=== PATIENT | male | born 1980 ===

== ENCOUNTER → 2019-09-20 19:04 | Outpatient (CLI) | payer OTHER, SELFPAY ==
[2019-09-20 21:59] LABS: COVID19 -Nasal RAPID Negative (Negative)
== END ==
PROVIDERS: Referring Provider Family Medicine; Visit Provider Family Medicine
DX: Z11.59 Encounter for screening for other viral diseases (principal)
CPT/HCPCS: 87635

== ENCOUNTER → 2021-02-02 08:23 | Outpatient (CLI) | payer OTHER, SELFPAY ==
[2021-02-02 11:01] LABS: COVID19 -Nasal RAPID Negative (Negative)
== END ==
PROVIDERS: Visit Provider Physician Assistant
DX: Z20.822 Contact with and (suspected) exposure to COVID-19 (principal)
CPT/HCPCS: 87635

== ENCOUNTER 2021-02-09 11:03 | Emergency (ER) | payer OTHER, SELFPAY ==
[2021-02-09] VITALS (10 sets, daily range): BP systolic 119–141; BP diastolic 60–89; PULSE 46–54; RESP 12–21; TEMP 36.9; O2SAT 94–100; BMI 24.4
[2021-02-09] MEDS: SODIUM CHLORIDE 0.9% 1,000 ML 1000 ML IV (11:20)
--- NOTE | 2021-02-09 11:38 | DI.CT.S_ITS ---
PROCEDURE: CT HEAD/BRAIN WO CON INDICATIONS: AMS TECHNIQUE: Noncontrast 4.5 mm thick angled axial sections acquired from the foramen magnum to the vertex, with coronal and sagittal reformats. For radiation dose reduction, the following was used: automated exposure control, adjustment of mA and/or kV according to patient size. COMPARISON: None. FINDINGS: Image quality: Excellent. CSF spaces: The left basal cistern is narrowed, with developing hydrocephalus on the left. Brain: Extensive low density with swelling can be seen throughout the3 right cerebral hemisphere. There is the appearance of a low-density mass centered within the right temporal lobe that measures 3.8 x 4.1 cm in greatest axial dimension, with extensive surrounding edema. There is midline shift of 1 cm. There is potential, minimal early subfalcine herniation. Apparent low-density can be seen within the brainstem as well. Oliveira-white matter interface is normal. Skull and face: Calvarium and visualized facial bones are intact, without suspicious lesions. Sinuses: Visualized sinuses and mastoids are clear. IMPRESSION: Right-sided mass centered within the right temporal lobe, with extensive surrounding edema and mass effect. There is midline shift, with potential, minimal early subfalcine herniation. The left basal cistern is narrowed, with developing hydrocephalus on the left. If it would be helpful for clinical management decision making, please consider a dedicated brain MRI for further evaluation (assuming that there is no contraindication). Neurosurgery consultation is recommended. Note: Findings and recommendations discussed by telephone with Dr. Hines at 11:00 a.m. [place] time on February 09, 2021. Dictated by: Norman Foreman M.D. on 02/09/2021 at 10:57 Approved by: Norman Foreman M.D. on 02/09/2021 at 11:03
--- NOTE | 2021-02-09 11:38 | ED.NEUROSD ---
HPI - Neuro Symptoms/Deficit General Chief Complaint: Neuro Symptoms/Deficit Stated Complaint: Sinus issues, migraine, nauseas, fatigue, unrespon Time Seen by Provider: 02/09/21 11:15 Source: patient Mode of arrival: Wheelchair Limitations: no limitations History of Present Illness HPI Narrative: Patient is a 41-year-old male. This somewhat difficult to obtain in HPI from the patient. Much of the history comes from the patient's who is at bedside. For the past week he has had a progressive decline in mental status which has worsened over the past 24 hours. He was seen approximately 1 week ago for headache and sinus issues. Was swabbed for COVID which was negative. Since that visit according to his he has been progressively worsening. states he has not been acting like himself. Today his stated that she was taking him to the hospital despite his objections to this. She did bring him by private vehicle but threatening to call 911 if he could not walk to the car. Patient is able to provide some HPI but he seems to be inappropriate with answering questions. He tries to provide joking answers to my questions. Other than having pain ?in my nose. He reports no other symptoms although I do have some concern that he may not be able to answer what I am asking him or able to understand what I am asking. On Anticoagulants: No Related Data Allergies Allergy/AdvReac Type Severity Reaction Status Date / Time No Known Drug Allergies Allergy Verified 02/09/21 11:09 Review of Systems Review of Systems Narrative: Patient's only positive review of system was pain in his nose although I have concern that he does not have the ability to either understand when I am asking or answer the questions. ROS Unobtainable: Unobtainable due to medical condition Hematologic/Lymphatic On Anticoagulants: No Patient History Medical History URI (upper respiratory infection) Social History (Updated 02/09/21 @ 12:15 by Jesus Hines DO) marital status: lives independently: Yes alcohol intake frequency: holidays/special occasions only Substance Use Type: marijuana Exam Initial Vital Signs Initial Vital Signs: Vital Signs Temperature 98.4 F 02/09/21 11:07 Pulse Rate 54 L 02/09/21 11:07 Respiratory Rate 14 02/09/21 11:07 Blood Pressure 136/73 02/09/21 11:07 Pulse Oximetry 97 02/09/21 11:07 Const General: well developed and well groomed [facility] Head: normal to inspection and normocephalic Nose: external nose normal Face and sinus: normal facial exam Mouth: moist mucous membranes Eyes Other: Right eye is somewhat proptotic. Pupils his 8 mm and dilated and does not respond to light. Left pupil is 3 mm and reactive. Patient unable to follow commands to evaluate his extraocular muscles. Neck Neck: normal visual inspection Chest Chest: normal inspection of the chest Resp Effort & Inspection: normal respiratory effort Auscultation: clear to auscultation bilaterally Cardio Rate: regular rate Rhythm: regular rhythm GI Inspection: normal to inspection Skin General: no rashes or lesions noted Neuro Other: Patient is alert to person and place. He is somewhat inappropriate with answering questions. He jokes around with his answers. His right eye is somewhat proptotic and the right pupil is fixed and dilated compared to the left. The rest of his cranial nerves appears to be intact. He has no other facial palsies. His right upper extremity has 5/5 strength and he can follow commands. Patient is unable to lift his left upper extremity. 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 Patient's right lower extremity is 5/5 strength in his able to follow commands. He seems to have equal strength to his left lower extremity and follows commands with this as well. Extrem General: normal to inspection and capillary refill normal Psych Appearance: grossly normal and well kempt Scores GCS Dexter coma scale eye opening: Spontaneous Matthews coma scale verbal response: Orientated Dexter coma scale motor response: Obey commands Matthews coma scale total score: 15 Course Orders Ordered: ED Orders 02/09/21 11:30 Urinalysis and Microscopic Stat 02/09/21 11:31 Urine Drug Screen, Rapid Stat 02/09/21 11:35 Basic Metabolic Panel Stat COVID19 -Nasal swab/Pre-Proc Stat Complete Blood Count AUTO DIFF Stat Ethanol (ETOH) Stat Thyroid Stimulating Hormone Stat 02/09/21 11:38 CT head/brain wo con Stat Discontinued Medications Dexamethasone (Dexamethasone 10 Mg/Ml Vial) 10 mg IV NOW ONE Stop: 02/09/21 12:09 Last Admin: 02/09/21 12:13 Dose: 10 mg Documented by: ATAYLOR Sodium Chloride (Normal Saline 0.9%) 1,000 mls @ 1,000 mls/hr IV BOLUS ONE Stop: 02/09/21 12:14 Last Admin: 02/09/21 11:20 Dose: 1,000 mls/hr Documented by: TISHA Vital Signs Vital signs: Vital Signs - 8 hr 02/09/21 11:07 02/09/21 11:49 02/09/21 11:51 Temperature 98.4 F Pulse Rate 54 L 50 L 50 L Respiratory Rate 14 16 17 Blood Pressure 136/73 132/79 Pulse Oximetry 97 98 97 02/09/21 12:00 02/09/21 12:15 02/09/21 12:30 Temperature Pulse Rate 47 L 48 L 52 L Respiratory Rate 17 15 17 Blood Pressure 136/77 131/73 119/60 Pulse Oximetry 98 94 99 02/09/21 12:45 Temperature Pulse Rate 46 L Respiratory Rate 16 Blood Pressure 136/83 Pulse Oximetry 96 MDM - Neuro Symptoms/Deficit Lab Data Attestation: I reviewed the patient's lab results. Result diagrams: 02/09/21 11:35 02/09/21 11:35 Labs: Lab Results 02/09/21 02/09/21 02/09/21 Range/Units 11:35 11:35 11:35 WBC 17.1 H (4.5-11.0) X10^3/uL RBC 5.35 (4.5-5.9) X10^6/uL Hgb 15.2 (13.5-17.5) g/dL Hct 45.0 (41-53) % MCV 84.1 (80-100) fL MCH 28.5 (26-34) PG MCHC 33.9 (30-36) % RDW 13.3 (11.6-14.8) % Plt Count 365 (150-400) X10^3/uL Neut % (Auto) 78.7 H (50-75) % Lymph % (Auto) 10.7 L (25-40) % Adams % (Auto) 10.4 (3-14) % Eos % (Auto) 0.0 L (2-4) % Baso % (Auto) 0.2 (0-2) % Neut # (Auto) 82613 H (4654-6330) /uL Lymph # (Auto) 1800 (4602-2870) /uL Adams # (Auto) 1800 H (0-900) /uL Eos # (Auto) 0 (0-450) /uL Baso # (Auto) 0 (0-100) /uL Sodium 136 L (137-145) mmol/L Potassium 3.8 (3.4-5.1) mmol/L Chloride 98 (98-107) mmol/L Carbon Dioxide 26 (22-32) mmol/L BUN 16 (9-20) mg/dL Creatinine 0.67 (0.66-1.25) mg/dL Estimated GFR > 60.0 (>60) mL/min BUN/Creatinine Ratio 23.9 H (6-22) Glucose 139 H (70-100) mg/dL Calcium 9.5 (8.4-10.2) mg/dL Ethyl Alcohol < 10 ( - 10) mg/dL SARS-CoV-2 (PCR) (Negative) 02/09/21 Range/Units 11:35 WBC (4.5-11.0) X10^3/uL RBC (4.5-5.9) X10^6/uL Hgb (13.5-17.5) g/dL Hct (41-53) % MCV (80-100) fL MCH (26-34) PG MCHC (30-36) % RDW (11.6-14.8) % Plt Count (150-400) X10^3/uL Neut % (Auto) (50-75) % Lymph % (Auto) (25-40) % Adams % (Auto) (3-14) % Eos % (Auto) (2-4) % Baso % (Auto) (0-2) % Neut # (Auto) (6302-9707) /uL Lymph # (Auto) (8749-3155) /uL Adams # (Auto) (0-900) /uL Eos # (Auto) (0-450) /uL Baso # (Auto) (0-100) /uL Sodium (137-145) mmol/L Potassium (3.4-5.1) mmol/L Chloride (98-107) mmol/L Carbon Dioxide (22-32) mmol/L BUN (9-20) mg/dL Creatinine (0.66-1.25) mg/dL Estimated GFR (>60) mL/min BUN/Creatinine Ratio (6-22) Glucose (70-100) mg/dL Calcium (8.4-10.2) mg/dL Ethyl Alcohol ( - 10) mg/dL SARS-CoV-2 (PCR) Negative (Negative) Imaging Data CT scan - head: Radiologist's Impression: [address] [address] [address] Scan Report Signed Patient: Kevin Penn MR#: [id number] : 1980 Acct:[id number] Age/Sex: 41 / M Date of Service: 02/09/21 Loc: ED Accession Number: [id number] ?? Procedure: CT head/brain wo con Ordering Provider: Jesus Hines D.O. PROCEDURE:? CT HEAD/BRAIN WO CON ? INDICATIONS:? AMS ? TECHNIQUE:? Noncontrast 4.5 mm thick angled axial sections acquired from the foramen magnum to the vertex, with coronal and sagittal reformats.? For radiation dose reduction, the following was used:? automated exposure control, adjustment of mA and/or kV according to patient size.? ? COMPARISON:? None. ? FINDINGS:? Image quality:? Excellent.? ? CSF spaces:? The left basal cistern is narrowed, with developing hydrocephalus on the left. ? Brain:? Extensive low density with swelling can be seen throughout the3 right cerebral hemisphere.? There is the appearance of a low-density mass centered within the right temporal lobe that measures 3.8 x 4.1 cm in greatest axial dimension, with extensive surrounding edema.? There is midline shift of 1 cm.? There is potential, minimal early subfalcine herniation. ? Apparent low-density can be seen within the brainstem as well.? Oliveira-white matter interface is normal.? ? Skull and face:? Calvarium and visualized facial bones are intact, without suspicious lesions.? ? Sinuses:? Visualized sinuses and mastoids are clear.? ? IMPRESSION:? Right-sided mass centered within the right temporal lobe, with extensive surrounding edema and mass effect. ? There is midline shift, with potential, minimal early subfalcine herniation. ? The left basal cistern is narrowed, with developing hydrocephalus on the left. ? If it would be helpful for clinical management decision making, please consider a dedicated brain MRI for further evaluation (assuming that there is no contraindication).? ? ? Neurosurgery consultation is recommended. ? Note: Findings and recommendations discussed by telephone with Dr. Hines at 11:00 a.m. [place] time on February 09, 2021. ? ? ? Dictated by: Norman Foreman M.D. on 02/09/2021 at 10:57 ? ? Approved by: Norman Foreman M.D. on 02/09/2021 at 11:03?? MDM Narrative Medical decision making narrative: Has a GCS of 15. Obviously has a fixed dilated pupil on the right and difficulty with coordination and movement with his left upper and left lower extremity. Patient does have a leukocytosis but I have low suspicion for an infection. CT scan shows brain mass with edema. Patient was given Decadron. I did inform the patient and the patient's who is at bedside of the diagnosis. Discussed the case with Dr. Soto from the emergency department [facility] who accepts the patient for transfer. Patient's agrees with transfer. Patient is currently stable for transport. No need for intubation currently. Critical Care Time Critical Care Time Critical Care Time: Yes Total Critical Care Time: 35 Attestation: The high probability of a clinically significant, sudden or life threatening deterioration of the neurologic system(s) required my full and direct attention, intervention and personal management. The aggregate critical care time was [35] minutes. This time is in addition to time spent performing reported procedures but includes the following: [x] Data Review and interpretation [x] Patient assessment and monitoring of vital signs [x] Documentation [x] Medication orders and management Discharge Plan Departure Patient Disposition: [facility] Clinical Impression: Brain mass Referrals: Miscellaneous,DoctorMD [Primary Care Provider] -
[2021-02-09 11:47] LABS: Add Manual Diff / Slide Review NO; Basophils Absolute Auto 0 /uL (0-100); Basophils Percent Auto 0.2 % (0-2); Eosinophils Absolute Auto 0 /uL (0-450); Hemoglobin 15.2 g/dL (13.5-17.5); Lymphocytes Absolute Auto 1800 /uL (1100-4500); Lymphocytes Percent Auto 10.7 % (25-40); Mean Corpuscular HGB Conc 33.9 % (30-36); Mean Corpuscular Hemoglobin 28.5 PG (26-34); Mean Corpuscular Volume 84.1 fL (80-100); Monocytes Absolute Auto 1800 /uL (0-900); Monocytes Percent Auto 10.4 % (3-14); Neutrophils Absolute Auto 13500 /uL (1500-7000); Neutrophils Percent Auto 78.7 % (50-75); Platelet Count 365 X10^3/uL (150-400); Red Blood Cell Count 5.35 X10^6/uL (4.5-5.9); Red Cell Distribution Width 13.3 % (11.6-14.8); White Blood Cell Count 17.1 X10^3/uL (4.5-11.0)
[2021-02-09 12:06] LABS: BUN Creatinine Ratio 23.9 (6-22); Blood Urea Nitrogen 16 mg/dL (9-20); Calcium 9.5 mg/dL (8.4-10.2); Carbon Dioxide 26 mmol/L (22-32); Chloride 98 mmol/L (98-107); Estimated Glomerular Filt Rate > 60.0 mL/min (>60); Ethanol (ETOH) < 10 mg/dL; Glucose 139 mg/dL (70-100); HEMOLYSIS < 15 (0-50); Potassium 3.8 mmol/L (3.4-5.1); Sodium 136 mmol/L (137-145)
[2021-02-09 12:13] LABS: COVID19 -Nasal RAPID Negative (Negative)
[2021-02-09] MEDS: DEXAMETHASONE 10 MG/ML VIAL IV (12:13)
[2021-02-09 13:25] LABS: Thyroid Stimulating Hormone 0.617 uIU/mL (0.47-4.68)
== END 2021-02-09 13:40 | disposition short-term general hospital (02) ==
PROVIDERS: Emergency Provider Emergency Medicine
DX: G93.89 Other specified disorders of brain (principal); Z20.822 Contact with and (suspected) exposure to COVID-19
CPT/HCPCS: 36415; 70450; 80048; 80320; 84443; 85025; 87635; 96361; 96374; 99284; 99291; C9803; J1100

== ENCOUNTER 2021-03-07 13:52 | Emergency (ER) | payer OTHER, MEDICAID, SELFPAY ==
[2021-03-07 14:02] VITALS: BP 137/97; PULSE 106; RESP 18; TEMP 36.7; O2SAT 96; BMI 24.4
--- NOTE | 2021-03-07 16:02 | ED.SKABFB ---
HPI - Skin/Abscess/Foreign Bdy General Chief complaint: Skin/Abscess/Foreign Body Stated complaint: Rash post neuro surgery Time Seen by Provider: 03/07/21 16:01 Source: patient Mode of arrival: Ambulatory Limitations: no limitations History of Present Illness HPI narrative: Patient here for itching and rash. Patient recently seen here and transferred to [facility] for craniotomy. Patient had brain mass that he did urgent surgery. He has been on antibiotics for at least 2 weeks. No changes in it. He states he returned home and started using his usual soap however he has been scrubbing very hard under the armpits and behind the neck and on the sides of his abdomen in the groin area. No respiratory complaints. No itching or rash to his right side scalp. Surgical site is clean dry intact. Helmet removed. Related Data Previous Rx's Medication Instructions Recorded hydroxyzine HCl 25 mg tablet 25 mg PO QID PRN #20 tab 03/07/21 Allergies Allergy/AdvReac Type Severity Reaction Status Date / Time No Known Drug Allergies Allergy Verified 02/09/21 11:09 Review of Systems Review of Systems Narrative: GENERAL: Denies chills, fatigue, malaise, fever, sweats. HEENT: Denies sinus pain, ear pain, sore throat RESPIRATORY: Denies dyspnea, cough CARDIOVASCULAR: Denies chest pain, palpitations GASTROINTESTINAL: Denies nausea, vomiting, abdominal pain : Denies dysuria, frequency, hematuria MUSCULOSKELETAL: denies muscle or bony pain SKIN: Positive for rash, negative skin lesions NEUROLOGIC: Denies weakness, numbness ROS Unobtainable: All systems reviewed & are unremarkable except as noted in HPI and below Patient History Medical History URI (upper respiratory infection) Social History marital status: lives independently: Yes Smoking Status: Never smoker Smoking Status: Never smoker alcohol intake frequency: holidays/special occasions only Substance Use Type: marijuana Exam Narrative Exam Narrative: GENERAL: in no distress, not toxic not dyspneic HEAD: Right side of scalp clean dry intact at the surgical sites. EYES: Pupils equal round No scleral icterus. NECK: Trachea midline. CARDIOVASCULAR: Regular rate and rhythm without murmurs RESPIRATORY: Clear to auscultation. Breath sounds equal bilaterally. No wheezes, rales, or rhonchi. BACK: No flank tenderness. NEURO: AOx4. SKIN: Warm and dry. There are diffuse papules at the armpits bilaterally and at the base of the neck and the sides of the abdomen. Distribution of where patient does heart scrubbing with his soap PSYCH: Is anxious, is cooperative Initial Vital Signs Initial Vital Signs: Vital Signs Temperature 98.1 F 03/07/21 14:02 Pulse Rate 106 H 03/07/21 14:02 Respiratory Rate 18 03/07/21 14:02 Blood Pressure 137/97 H 03/07/21 14:02 Pulse Oximetry 96 03/07/21 14:02 Course Course Course Narrative: No new issues during course of stay Reevaluation(s) Reevaluation #1: Patient agrees with treatment plan and removing his bath soap as possible source of allergic reaction. At this time he understands that he could be developing allergic reaction to his antibiotics as well. Time: 16:46 Vital Signs Vital signs: Vital Signs - 8 hr 03/07/21 14:02 Temperature 98.1 F Pulse Rate 106 H Respiratory Rate 18 Blood Pressure 137/97 H Pulse Oximetry 96 MDM - Skin/Abscess/Foreign Bdy Differential Diagnosis Differential diagnosis: Likely abscess of skin or subcutaneous tissue, viral exanthem, urticaria, allergic reaction to drug, eczema, impetigo and contact dermatitis MDM Narrative Medical decision making narrative: Appropriate for discharge home. Patient more relaxed after discussion of likely diagnosis. Patient has been very anxious here because last time he was here with abnormal CT scan finding and urgent transferred to [facility] for surgery. Discharge Plan Departure Patient Disposition: Home Clinical Impression: Contact dermatitis Instructions: DI for Atopic Dermatitis-Adult Activity Restrictions/Additional Instructions: Be sure to stop previous soap that your using. Prescription for hydroxyzine has been provided to help for itching but also helps for anxiety. It is possible that may be developing allergic reaction to your antibiotics but at this time try eliminating 1 source at a time. See your family doctor in a week for recheck. Call provided primary care referral phone number to establish family doctor. Call [phone]. Return if worsening questions or concerns Prescriptions: New hydroxyzine HCl 25 mg tablet 25 mg PO QID PRN (Reason: itching) Qty: 20 0RF Referrals: Miscellaneous,Doctor, [Primary Care Provider] -
== END 2021-03-07 16:49 | disposition home or self-care (01) ==
PROVIDERS: Emergency Provider Emergency Medicine
DX: L25.9 Unspecified contact dermatitis, unspecified cause (principal)
CPT/HCPCS: 99281

== ENCOUNTER 2021-08-02 07:42 | Emergency (ER) | payer OTHER, MEDICAID, SELFPAY ==
[2021-08-02] VITALS (11 sets, daily range): BP systolic 105–130; BP diastolic 58–87; PULSE 75–96; RESP 12–28; TEMP 36.7; O2SAT 94–99; BMI 28.8
--- NOTE | 2021-08-02 07:42 | DI.CT.S_ITS ---
PROCEDURE: CT STROKE INDICATIONS: code stroke TECHNIQUE: Noncontrast 4.5 mm thick angled axial sections acquired from the foramen magnum to the vertex, with coronal reformats. For radiation dose reduction, the following was used: automated exposure control, adjustment of mA and/or kV according to patient size. COMPARISON: [facility], CT, CT HEAD/BRAIN WO CON, 02/09/2021, 11:46. FINDINGS: Image quality: Excellent. CSF spaces: Basal cisterns are patent. No extra-axial fluid collections. Ventricles are normal in size and shape. Brain: Postsurgical changes compatible with evacuation of right temporal abscess noted in the interval since prior CT scan. No midline shift. No intracranial masses or hemorrhage. Oliveira-white matter interface is normal. Skull and face: Status post right [id number]-rhzgrnge cranioplasty. The visualized facial bones are intact, without suspicious lesions. Sinuses: Visualized sinuses and mastoids are clear. IMPRESSION: No acute intracranial disease process. This study fulfills neurological imaging criteria for inclusion or exclusion of acute stroke therapies based on available published neurological imaging guidelines. Dictated by: Norma Norris MD, PhD on 08/02/2021 at 7:59 Approved by: Norma Norris MD, PhD on 08/02/2021 at 8:03
--- NOTE | 2021-08-02 07:44 | DI.CT.S_ITS ---
PROCEDURE: CT CERVICAL SPINE WO CON INDICATIONS: fall TECHNIQUE: Noncontrast 3 mm thick sections acquired from the skull base to the T4 level. Sagittal and coronal reformats were then constructed. For radiation dose reduction, the following was used: automated exposure control, adjustment of mA and/or kV according to patient size. COMPARISON: None. FINDINGS: Image quality: Excellent. Bones: No fractures or dislocations. Mild degenerative endplate changes and slight loss of disc height at C5-6 and C6-7 levels are seen. Visualized superior ribs are intact. Soft tissues: Prevertebral soft tissues are normal in thickness. No paravertebral hematomas. No apical pneumothoraces. IMPRESSION: No acute cervical spine fracture or dislocation. Mild degenerative endplate changes in mid to lower cervical spine. Dictated by: Abdifatah Ascencio M.D. on 08/02/2021 at 8:05 Approved by: Abdifatah Ascencio M.D. on 08/02/2021 at 8:07
[2021-08-02 07:51] LABS: Add Manual Diff / Slide Review NO; Basophils Absolute Auto 100 /uL (0-100); Basophils Percent Auto 0.5 % (0-2); Eosinophils Absolute Auto 200 /uL (0-450); Eosinophils Percent Auto 1.6 % (2-4); Hematocrit 43.6 % (41-53); Hemoglobin 14.5 g/dL (13.5-17.5); Lymphocytes Absolute Auto 2300 /uL (1100-4500); Lymphocytes Percent Auto 19.4 % (25-40); Mean Corpuscular HGB Conc 33.3 % (30-36); Mean Corpuscular Hemoglobin 28.2 PG (26-34); Mean Corpuscular Volume 84.5 fL (80-100); Monocytes Absolute Auto 1900 /uL (0-900); Neutrophils Absolute Auto 7300 /uL (1500-7000); Neutrophils Percent Auto 62.5 % (50-75); Platelet Count 353 X10^3/uL (150-400); Red Blood Cell Count 5.16 X10^6/uL (4.5-5.9); Red Cell Distribution Width 13.7 % (11.6-14.8); White Blood Cell Count 11.6 X10^3/uL (4.5-11.0)
--- NOTE | 2021-08-02 07:53 | ED_ITS ---
HPI - General Adult General Chief complaint: Seizure Stated complaint: code stroke/ seizure Time Seen by Provider: 08/02/21 07:42 Source: patient and EMS Mode of arrival: EMS Limitations: no limitations History of Present Illness HPI narrative: Patient is a 41-year-old male. Was reported that he had a prior history of a brain tumor versus brain abscess. Had surgery in February of last year. Had a repeat cranioplasty a few weeks ago. Is followed by [facility]. Has had seizures in the past but was reported by EMS they were told that he has not had a seizure since his surgery. He is on Keppra 500 mg 2 times a day. He normally takes and 0900 hours in the morning. Since that is before 0900 hours he has not taken it today. He did at 1 point question whether not he took his Keppra last evening. Is reported that he had a seizure this morning he did fall and hit his head. After the seizures reported that he had left-sided deficits. EMS reported from family that he has had left-sided deficits in the past after surgery/seizures. EMS reports that he was improving somewhat in route. He was a code stroke secondary to his deficit. Related Data Home Medications Medication Instructions Recorded Confirmed levetiracetam 500 mg tablet 500 mg PO BID 08/02/21 08/02/21 Allergies Allergy/AdvReac Type Severity Reaction Status Date / Time No Known Drug Allergies Allergy Verified 08/02/21 08:01 Review of Systems Review of Systems ROS Unobtainable: All systems reviewed & are unremarkable except as noted in HPI and below Patient History Medical History Seizure URI (upper respiratory infection) Surgical History History of cranioplasty Social History marital status: lives independently: Yes Smoking Status: Never smoker Smoking Status: Never smoker alcohol intake frequency: holidays/special occasions only Substance Use Type: marijuana Exam Initial Vital Signs Initial Vital Signs: Vital Signs Temperature 98.1 F 08/02/21 07:40 Pulse Rate 96 H 08/02/21 07:40 Respiratory Rate 15 08/02/21 07:40 Blood Pressure 129/77 08/02/21 07:40 Pulse Oximetry 98 08/02/21 07:40 Const General: cooperative, comfortable, well developed and well groomed HENMT Other HENMT:: Surgical scar is healing. There is a small amount of dried blood on the top of his head midline. Eyes Pupils: PERRL Chest Chest: No crepitus and No tenderness Resp Effort & Inspection: normal respiratory effort Auscultation: clear to auscultation bilaterally Cardio Rate: regular rate Rhythm: regular rhythm GI Inspection: normal to inspection Palpation: soft and No tender Skin Other: Abrasion under her right eye. Dried blood from top of scalp over surgical incision Neuro Other: Patient was alert oriented x3. Able to move all 4 extremities equally. Strength 5/5 upper and lower extremities. No facial deficits noted. Extrem General: normal to inspection and capillary refill normal Other: No tenderness with palpation or movement of her upper lower extremities Psych Appearance: grossly normal and well kempt Scores GCS [place] coma scale eye opening: Spontaneous [place] coma scale verbal response: Orientated [place] coma scale motor response: Obey commands [place] coma scale total score: 15 Course Orders Ordered: ED Orders 08/02/21 14:45 Consult to [employer] [facility] DIRECTOR - Corporate Legal Manager Stat Discontinued Medications Acetaminophen (Acetaminophen 325 Mg Tablet) 650 mg PO NOW ONE Stop: 08/02/21 09:29 Last Admin: 08/02/21 09:49 Dose: 650 mg Documented by: MARGARET Levetiracetam 500 mg/ Sodium (Chloride) 105 mls @ 420 mls/hr IV NOW ONE Stop: 08/02/21 07:54 Last Infusion: 08/02/21 08:30 Dose: 0 mls/hr Documented by: Admin: 08/02/21 08:04 Dose: 420 mls/hr Documented by: MARGARET Vital Signs Vital signs: Vital Signs - 8 hr 08/02/21 10:00 08/02/21 10:30 08/02/21 11:00 Pulse Rate 77 75 76 Respiratory Rate 12 18 20 Blood Pressure 105/58 L 117/58 L 128/62 Pulse Oximetry 94 96 95 08/02/21 11:30 08/02/21 12:00 Pulse Rate 75 79 Respiratory Rate 28 H 24 Blood Pressure 126/87 129/79 Pulse Oximetry 97 94 Medical Decision Making Lab Data Lab results reviewed: Yes I reviewed the patient's lab results. Result diagrams: 08/02/21 07:48 08/02/21 07:48 Labs: Lab Results 08/02/21 08/02/21 08/02/21 Range/Units 07:48 07:48 07:48 WBC 11.6 H (4.5-11.0) X10^3/uL RBC 5.16 (4.5-5.9) X10^6/uL Hgb 14.5 (13.5-17.5) g/dL Hct 43.6 (41-53) % MCV 84.5 (80-100) fL MCH 28.2 (26-34) PG MCHC 33.3 (30-36) % RDW 13.7 (11.6-14.8) % Plt Count 353 (150-400) X10^3/uL Neut % (Auto) 62.5 (50-75) % Lymph % (Auto) 19.4 L (25-40) % [place] % (Auto) 16.0 H (3-14) % Eos % (Auto) 1.6 L (2-4) % Baso % (Auto) 0.5 (0-2) % Neut # (Auto) 7300 H (8531-4160) /uL Lymph # (Auto) 2300 (3857-3289) /uL [place] # (Auto) 1900 H (0-900) /uL Eos # (Auto) 200 (0-450) /uL Baso # (Auto) 100 (0-100) /uL PT 11.2 (10.1-12.7) SECONDS INR 1.0 (0.9-1.3) APTT 30 (26.4-36.2) SECONDS Sodium 142 (137-145) mmol/L Potassium 3.6 (3.4-5.1) mmol/L Chloride 107 (98-107) mmol/L Carbon Dioxide 20 L (22-32) mmol/L BUN 8 L (9-20) mg/dL Creatinine 0.82 (0.66-1.25) mg/dL Estimated GFR > 60 (>60) mL/min BUN/Creatinine Ratio 9.8 (6-22) Glucose 135 H (70-100) mg/dL Calcium 9.5 (8.4-10.2) mg/dL Total Bilirubin 0.5 (0.2-1.3) mg/dL AST 29 (17-59) IU/L ALT 34 (<50) IU/L Alkaline Phosphatase 63 (38-126) U/L Total Protein 8.3 H (6.3-8.2) g/dL Albumin 5.1 H (3.5-5.0) g/dL Globulin 3.2 (1.7-4.1) g/dL Albumin/Globulin Ratio 1.6 (1.0-2.8) Lipase 65 (23-300) U/L Ethyl Alcohol < 10 ( - 10) mg/dL SARS-CoV-2 (PCR) (Negative) 08/02/21 Range/Units 08:16 WBC (4.5-11.0) X10^3/uL RBC (4.5-5.9) X10^6/uL Hgb (13.5-17.5) g/dL Hct (41-53) % MCV (80-100) fL MCH (26-34) PG MCHC (30-36) % RDW (11.6-14.8) % Plt Count (150-400) X10^3/uL Neut % (Auto) (50-75) % Lymph % (Auto) (25-40) % [place] % (Auto) (3-14) % Eos % (Auto) (2-4) % Baso % (Auto) (0-2) % Neut # (Auto) (4049-1643) /uL Lymph # (Auto) (7171-5481) /uL [place] # (Auto) (0-900) /uL Eos # (Auto) (0-450) /uL Baso # (Auto) (0-100) /uL PT (10.1-12.7) SECONDS INR (0.9-1.3) APTT (26.4-36.2) SECONDS Sodium (137-145) mmol/L Potassium (3.4-5.1) mmol/L Chloride (98-107) mmol/L Carbon Dioxide (22-32) mmol/L BUN (9-20) mg/dL Creatinine (0.66-1.25) mg/dL Estimated GFR (>60) mL/min BUN/Creatinine Ratio (6-22) Glucose (70-100) mg/dL Calcium (8.4-10.2) mg/dL Total Bilirubin (0.2-1.3) mg/dL AST (17-59) IU/L ALT (<50) IU/L Alkaline Phosphatase (38-126) U/L Total Protein (6.3-8.2) g/dL Albumin (3.5-5.0) g/dL Globulin (1.7-4.1) g/dL Albumin/Globulin Ratio (1.0-2.8) Lipase (23-300) U/L Ethyl Alcohol ( - 10) mg/dL SARS-CoV-2 (PCR) Negative (Negative) Imaging Data CT scan - head: Radiologist's Impression: [address] [address] [address] Scan Report Signed Patient: Kevin Penn MR#: [id number] : 1980 Acct:[id number] Age/Sex: 41 / M Date of Service: 08/02/21 Loc: ED Accession Number: [id number] ?? Procedure: CT Stroke Ordering Provider: Jesus Hines D.O. PROCEDURE:? CT STROKE ? INDICATIONS:? code stroke ? TECHNIQUE:? Noncontrast 4.5 mm thick angled axial sections acquired from the foramen magnum to the vertex, with coronal reformats.? For radiation dose reduction, the following was used:? automated exposure control, adjustment of mA and/or kV according to patient size .? ? COMPARISON:? [facility], CT, CT HEAD/BRAIN WO CON, 02/09/2021, 11:46. ? FINDINGS:? Image quality:? Excellent.? ? CSF spaces:? Basal cisterns are patent.? No extra-axial fluid collections.? V entricles are normal in size and shape.? ? Brain:? Postsurgical changes compatible with evacuation of right temporal abscess noted in the interval since prior CT scan.? No midline shift.? No intracranial masses or hemorrhage.? Oliveira-white matter interface is normal.? ? Skull and face:? Status post right kpvezsd-rsegfryp-tnhoblog cranioplasty.? The visualized facial bones are intact, without suspicious lesions.? ? Sinuses:? Visualized sinuses and mastoids are clear.? ? IMPRESSION:? No acute intracranial disease process. ? This study fulfills neurological imaging criteria for inclusion or exclusion of acute stroke therapies based on available published neurological imaging guidelines.? ? ? Dictated by: Norma Norris MD, PhD on 08/02/2021 at 7:59 ? ? Approved by: Norma Norris MD, PhD on 08/02/2021 at 8:03? CT - cervical spine: Radiologist's Impression: [address] [address] [address] Scan Report Signed Patient: Kevin Penn MR#: [id number] : 1980 Acct:[id number] Age/Sex: 41 / M Date of Service: 08/02/21 Loc: ED Accession Number: [id number] ?? Procedure: CT cervical spine wo con Ordering Provider: Jesus Hines D.O. PROCEDURE:? CT CERVICAL SPINE WO CON ? INDICATIONS:? fall ? TECHNIQUE:? Noncontrast 3 mm thick sections acquired from the skull base to the T4 level.? Sagittal and coronal reformats were then constructed.? For radiation dose reduction, the following was used:? automated exposure control, adjustment of mA and/or kV according to patient size.? ? COMPARISON:? None. ? FINDINGS:? Image quality:? Excellent.? ? Bones:? No fractures or dislocations.? Mild degenerative endplate changes and slight loss of disc height at C5-6 and C6-7 levels are seen.? Visualized superior ribs are intact.? ? Soft tissues:? Prevertebral soft tissues are normal in thickness.? No paravertebral hematomas.? No apical pneumothoraces.? ? ? IMPRESSION:? No acute cervical spine fracture or dislocation.? Mild degenerative endplate changes in mid to lower cervical spine. ? ? ? Dictated by: Abdifatah Ascencio M.D. on 08/02/2021 at 8:05 ? ? Approved by: Abdifatah Ascencio M.D. on 08/02/2021 at 8:07?? ECG Data Attestation: I personally reviewed and interpreted this ECG as follows: Prior ECG tracings: available for review Interpretation: Sinus rhythm Ventricular rate 99 Normal axis Normal QRS Normal QTC No ST T wave changes MDM Narrative Medical decision making narrative: Cervical collar removed after negative CT scan. Head CT shows postsurgical changes but no acute pathology. Patient regained his neurologic status. 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 He was given his morning dose of Keppra. No further seizure activity. I did discuss the case with Neurosurgery at [facility] who was able to look at the CT scan from today compared to prior and there is no new issues. Has an abrasion on the top of his head that needs no intervention here in the ER. He was informed that he cannot drive for the next 6 months because of the seizure today. He was informed he needs to keep all of his schedule medical appointments. He was given return precautions. Family at bedside for this discussion. They expressed understanding and agreement. Discharge Plan Departure Patient Disposition: Home Clinical Impression: Seizure Instructions: DI for Seizure (Not Epilepsy/Seizure Disorder) Activity Restrictions/Additional Instructions: Recommend you continue to take all of your medications as directed. Keep all of your scheduled medical appointments. Return to the emergency department for any new or worsening symptoms. Prescriptions: No Action levetiracetam 500 mg tablet 500 mg PO BID 0RF Label Comments: TAKE 1 TABLET BY MOUTH TWICE DAILY. DO NOT. STOP TAKING THIS MEDICATION Referrals: Miscellaneous,[facility] [Non-Staff] -
[2021-08-02 07:58] LABS: Prothrombin Time 11.2 SECONDS (10.1-12.7)
[2021-08-02 08:01] LABS: PTT Partial Thromboplastin Tim 30 SECONDS (26.4-36.2)
[2021-08-02 08:02] LABS: Alanine Aminotransferase 34 IU/L (<50); Albumin 5.1 g/dL (3.5-5.0); Albumin Globulin Ratio 1.6 (1.0-2.8); Alkaline Phosphatase 63 U/L (38-126); Aspartate Aminotransferase 29 IU/L (17-59); BUN Creatinine Ratio 9.8 (6-22); Bilirubin Total 0.5 mg/dL (0.2-1.3); Blood Urea Nitrogen 8 mg/dL (9-20); Calcium 9.5 mg/dL (8.4-10.2); Carbon Dioxide 20 mmol/L (22-32); Chloride 107 mmol/L (98-107); Estimated Glomerular Filt Rate > 60 mL/min (>60); Ethanol (ETOH) < 10 mg/dL; Globulin 3.2 g/dL (1.7-4.1); Glucose 135 mg/dL (70-100); HEMOLYSIS 16 (0-50); Lipase 65 U/L (23-300); Potassium 3.6 mmol/L (3.4-5.1); Sodium 142 mmol/L (137-145); Total Protein 8.3 g/dL (6.3-8.2)
[2021-08-02] MEDS: levETIRAcetam 500 MG in SODIUM CHLORIDE 0.9% 100 ML 420 ML IV (08:04)
[2021-08-02 08:36] LABS: COVID19 -Nasal RAPID Negative (Negative)
[2021-08-02] MEDS: ACETAMINOPHEN 325 MG TABLET 650 MG PO (09:49)
== END 2021-08-02 12:26 | disposition home or self-care (01) ==
PROVIDERS: Emergency Provider Emergency Medicine; PCP Family Medicine
DX: R56.9 Unspecified convulsions (principal); W18.30XA Fall on same level, unspecified, initial encounter; Z20.822 Contact with and (suspected) exposure to COVID-19
CPT/HCPCS: 70450; 72125; 80053; 80320; 83690; 85025; 85610; 85730; 87635; 93005; 96374; 99284; 99291; C9803; J1953

== ENCOUNTER 2024-10-23 16:37 | Emergency (ER) | payer OTHER, SELFPAY ==
[2024-10-23 16:47] VITALS: BP 141/88; PULSE 69; RESP 16; TEMP 36.6; O2SAT 99; BMI 25.7
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
== END 2024-10-23 20:12 | disposition left against medical advice (07) ==
PROVIDERS: Emergency Provider Family Medicine; PCP Family Medicine
DX: S09.90XA Unspecified injury of head, initial encounter (principal); R07.81 Pleurodynia; V29.99XA Rider (driver) (passenger) of other motorcycle injured in unspecified traffic accident, initial encounter
CPT/HCPCS: 70450; 71101; 72125; 99281

== ENCOUNTER 2024-10-23 20:41 | Emergency (ER) | payer OTHER, SELFPAY ==
[2024-10-23] VITALS (7 sets, daily range): BP systolic 135–144; BP diastolic 74–87; PULSE 62–69; RESP 14–19; TEMP 36.9; O2SAT 96–98; BMI 25.7
--- NOTE | 2024-10-23 21:36 | PC.NURSE ---
Provider Alvarado made aware of patient presentation, situation and earlier imaging. Asked if provider would like rigid c-collar placed and states it is OK to not place at this time.
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
== END 2024-10-23 22:21 | disposition home or self-care (01) ==
PROVIDERS: Emergency Provider Family Medicine; PCP Family Medicine
DX: S49.91XA Unspecified injury of right shoulder and upper arm, initial encounter (principal); R07.81 Pleurodynia; S09.90XA Unspecified injury of head, initial encounter; V89.2XXA Person injured in unspecified motor-vehicle accident, traffic, initial encounter
CPT/HCPCS: 99281